=== PATIENT | female | born 1995 | race African-American/Black ===

== ENCOUNTER 2017-05-29 06:53 | Inpatient (IN) ==
[2017-05-29 07:36] LABS: Apearance,Urine CLOUDY (Clear); Bacteria,Urine Occasional /HPF (Few); Bilirubin,Urine Negative (Negative); Blood, Urine Moderate mg/dL (Negative); Glucose,Urine (UA) Negative (Negative); Ketones,Urine Negative (Negative); Mucus,Urine Occasional /LPF (Occasional); Nitrite,Urine Negative (Negative); Protein,Urine Negative; RBC,Urine 3 /HPF (0-4); Squamous Epithelial Cell,Urine Moderate /HPF (0-10); Urine Color Yellow (Yellow); Urine Urobilinogen < 2.0 EU/DL (0.2-1.0); WBC,Urine 23 /HPF (0-6)
[2017-05-29] MEDS ORDERED: MEPERIDINE 50 MG/1 ML VIAL IV PRN (08:13)
[2017-05-29] MEDS ORDERED: ONDANSETRON 4 MG/2 ML VIAL IV PRN (08:13)
[2017-05-29] MEDS ORDERED: ePHEDrine 50 MG/ML AMP IV PRN (08:15)
[2017-05-29] MEDS ORDERED: hydrOXYzine HCL 25 MG/1 ML VIAL IM PRN (08:15)
[2017-05-29] MEDS ORDERED: CITRIC ACID/SODIUM CITRATE 30 ML UDCUP PO ONE (08:15)
[2017-05-29] MEDS ORDERED: PROMETHAZINE 25 MG/1 ML VIAL IM PRN (08:15)
[2017-05-29] MEDS ORDERED: FAMOTIDINE 20 MG/2 ML VIAL IV ONE (08:15)
[2017-05-29] MEDS ORDERED: LACTATED RINGERS 1,000 ML IV ONE (08:15)
[2017-05-29] MEDS ORDERED: diphenhydrAMINE 50 MG/1 ML VIAL IV PRN (08:15)
[2017-05-29] MEDS ORDERED: OXYTOCIN/LR 20 UNIT/1,000 ML BAG IV SCH (08:30)
[2017-05-29] MEDS ORDERED: LACTATED RINGERS 1,000 ML IV SCH (08:30)
[2017-05-29] MEDS ORDERED: fentaNYL 2 MCG/ROPIV 0.2% EPID 150 ML EPIDURAL SCH (08:30)
[2017-05-29 08:38] LABS: Basophils % 0.3 % (0.0-0.8); Eosinophils # 0.1 10*3/uL (0.0-0.87); Eosinophils % 0.7 % (0.00-10.9); Hematocrit 35.7 VOL% (35.7-47.0); Immature Granulocytes % 0.8 %; Immature Granulocytes Absolute 0.09 #; Lymphocytes # 2.5 10*3/uL (1.4-4.0); Lymphocytes % 23.6 % (21.3-54.2); Mean Corpuscular HGB Conc 33.6 GM/DL (32-36); Mean Corpuscular Hemoglobin 28 PG (27-34); Mean Corpuscular Volume 81.7 FL (87-102); Mean Platelet Volume 12.5 FL (9.6-12.0); Neutrophils # 7.1 10*3/uL (1.4-7.4); Neutrophils % 65.6 % (38.7-73.9); Platelet Count 120 T/CUMM (130-400); Red Blood Count 4.37 MC/CUMM (3.8-5.5); Red Cell Distribution Width 16.7 % (9.3-17.3); White Blood Count 10.8 T/CUMM (4-12)
[2017-05-29 08:55] LABS: Albumin 2.7 G/DL (3.4-5.0); Bilirubin,Total 0.5 MG/DL (0.2-1.0); Calcium 8.6 MG/DL (8.5-10.1); Osmolality,Calculated 272.7 MOS/KG (273-304); Total Protein 6.6 G/DL (6.4-8.3)
[2017-05-29] MEDS ORDERED: oxyCODONE/ACETAMINOPHEN 5-325 MG TABLET PO PRN (16:20)
[2017-05-29] MEDS ORDERED: LANOLIN 50% CREAM 0.3 OZ TUBE TOP PRN (16:20)
[2017-05-29] MEDS ORDERED: ACETAMINOPHEN/CODEINE 300-30 MG TABLET PO PRN (16:20)
[2017-05-29] MEDS ORDERED: HYDROCORTISONE 2.5% RECTAL CREAM 30 GM TUBE TOP PRN (16:20)
[2017-05-29] MEDS ORDERED: MEASLES/MUMPS/RUBELLA VACCINE 0.5 ML VIAL SUBCUT ONE (16:20)
[2017-05-29] MEDS ORDERED: WITCH HAZEL PADS 100/JAR TOP PRN (16:20)
[2017-05-29] MEDS ORDERED: BISACODYL 10 MG SUPP RECTAL PRN (16:20)
[2017-05-29] MEDS ORDERED: RHO(D) IMMUNE GLOBULIN 300 MCG SYRINGE IM ONE (16:20)
[2017-05-29] MEDS ORDERED: BENZOCAINE 20%/MENTHOL 0.5% SPRAY 56 GM CAN TOP PRN (16:20)
[2017-05-29] MEDS ORDERED: DIPH/TET/ACEL PERT BOOSTER VACCINE 0.5 ML VIAL IM ONE (16:20)
[2017-05-29] MEDS ORDERED: ACETAMINOPHEN 325 MG TABLET PO PRN (16:20)
[2017-05-29] MEDS: IBUPROFEN 800 MG TABLET PO PRN (19:38)
[2017-05-29] MEDS: DOCUSATE SODIUM 100 MG CAPSULE PO SCH (21:28)
[2017-05-30] MEDS: IBUPROFEN 800 MG TABLET PO PRN ×3 (02:20→23:31)
[2017-05-30 06:46] LABS: Basophils % 0.3 % (0.0-0.8); Eosinophils # 0.1 10*3/uL (0.0-0.87); Eosinophils % 0.6 % (0.00-10.9); Hematocrit 32.5 VOL% (35.7-47.0); Hemoglobin 10.4 GM/DL (12.0-16.0); Immature Granulocytes % 0.7 %; Immature Granulocytes Absolute 0.11 #; Lymphocytes # 2.5 10*3/uL (1.4-4.0); Lymphocytes % 16.1 % (21.3-54.2); Mean Corpuscular Hemoglobin 27 PG (27-34); Mean Corpuscular Volume 83.8 FL (87-102); Monocytes # 1.2 10*3/uL (0.11-0.8); Monocytes % 7.7 % (1.7-12.7); Neutrophils # 11.7 10*3/uL (1.4-7.4); Neutrophils % 74.6 % (38.7-73.9); Platelet Count 115 T/CUMM (130-400); Red Blood Count 3.88 MC/CUMM (3.8-5.5); Red Cell Distribution Width 16.6 % (9.3-17.3); White Blood Count 15.7 T/CUMM (4-12)
[2017-05-30] MEDS: oxyCODONE/ACETAMINOPHEN 5-325 MG TABLET PO PRN ×2 (06:50→23:27)
[2017-05-30] MEDS: DOCUSATE SODIUM 100 MG CAPSULE PO SCH ×2 (09:08→23:26)
[2017-05-31] MEDS: DOCUSATE SODIUM 100 MG CAPSULE PO SCH (08:34)
[2017-05-31 11:53] VITALS: BP 123/76
== END 2017-05-31 13:50 | disposition home or self-care (01) | DRG 775 ==
LOC: N.LDOUT 06:53 → N.LD 06:57 → N.OB 16:20
PROVIDERS: ADMIT Obstetrics & Gynecology; ATTEND Obstetrics & Gynecology